=== PATIENT | female | born 1970 | race Caucasian/White ===

== ENCOUNTER → 2017-02-11 | Outpatient (CLI) | payer BC ==
--- NOTE | 2017-02-11 10:31 | REP ---
AP/LATERAL THORACIC SPINE, FOUR VIEWS: HISTORY: Back pain. There is no acute fracture or subluxation. The intervertebral discs are normal in height. Anterior osteophytes are present in the mid and lower thoracic spine. IMPRESSION: Degenerative change as described above. Signed by Deep Rondon MD 02/11/2017 10:38 A
== END ==
LOC: M LRY 09:06
PROVIDERS: ATTEND Family Medicine
DX: M51.26 Other intervertebral disc displacement, lumbar region (principal)

== ENCOUNTER 2019-02-13 10:53 | Emergency (ER) | payer OTHER, BC ==
[~2019-02-13] VITALS: Ht 175.3 cm; Wt 131.8 kg
--- NOTE | 2019-02-13 14:19 | REP ---
LEFT FEMUR, AP AND LATERAL: AP and lateral views of the left femur are performed and demonstrate no fracture or dislocation. There appear to be minor degenerative changes of the hip and knee. IMPRESSION: No fracture or dislocation. Electronically Signed by Tino Mcdaniels MD 02/13/2019 04:33 P
[2019-02-13] MEDS ORDERED: TYLETAB14 PO (14:42)
[2019-02-13 14:59] VITALS: BP 146/108
== END 2019-02-13 15:07 | disposition home or self-care (01) ==
LOC: M ED 10:53
DX: S89.92XA Unspecified injury of left lower leg, initial encounter (principal); W00.9XXA Unspecified fall due to ice and snow, initial encounter; Y92.099 Unspecified place in other non-institutional residence as the place of occurrence of the external cause; Y93.9 Activity, unspecified; Y99.9 Unspecified external cause status; Z87.891 Personal history of nicotine dependence